=== PATIENT | male | born 1985 | race Caucasian/White ===

== ENCOUNTER → 2016-06-02 | Outpatient (CLI) | payer SELFPAY | LOC: M OUTALCOH 10:42 | PROVIDERS: ATTEND Psychiatry & Neurology Psychiatry | DX: Z03.89 Encounter for observation for other suspected diseases and conditions ruled out (principal) ==

== ENCOUNTER → 2016-06-29 | Outpatient (RCR) | payer SELFPAY | LOC: M OUTALCOH 06-21 11:36 | PROVIDERS: ATTEND Psychiatry & Neurology Psychiatry | DX: F10.20 Alcohol dependence, uncomplicated (principal) ==

== ENCOUNTER → 2016-07-30 | Outpatient (RCR) | payer SELFPAY | LOC: M OUTALCOH 07-06 11:05 | PROVIDERS: ATTEND Psychiatry & Neurology Psychiatry | DX: F10.20 Alcohol dependence, uncomplicated (principal) ==

== ENCOUNTER 2016-08-23 16:00 | Outpatient (RCR) | payer SELFPAY | END 2016-08-29 | LOC: M OUTALCOH 16:00 | PROVIDERS: ATTEND Psychiatry & Neurology Psychiatry | DX: F10.20 Alcohol dependence, uncomplicated (principal) ==

== ENCOUNTER 2016-09-08 08:41 | Emergency (ER) | payer SELFPAY ==
[~2016-09-08] VITALS: Ht 177.8 cm; Wt 95.3 kg
[2016-09-08 08:50] VITALS: BP 155/88
[2016-09-08] MEDS ORDERED: AUGM875T27 PO (09:59)
== END 2016-09-08 10:14 | disposition home or self-care (01) ==
LOC: M ED 09:47
DX: J01.00 Acute maxillary sinusitis, unspecified (principal); Z87.891 Personal history of nicotine dependence

== ENCOUNTER → 2016-09-09 | Outpatient (REF) | payer SELFPAY ==
[~2016-09-09] MED LIST: AUGM875T27 PO
[2016-09-12 08:06] LABS: URINE ETHANOL 1 Negative % (Cutoff=0.020)
== END ==
LOC: M OUTALCOH 16:04
PROVIDERS: ATTEND Psychiatry & Neurology Psychiatry
DX: F10.20 Alcohol dependence, uncomplicated (principal)

== ENCOUNTER 2016-09-23 15:00 | Outpatient (RCR) | payer SELFPAY | END 2016-09-29 | LOC: M OUTALCOH 15:00 | PROVIDERS: ATTEND Psychiatry & Neurology Psychiatry | DX: F10.20 Alcohol dependence, uncomplicated (principal) ==

== ENCOUNTER → 2016-10-07 | Outpatient (REF) | payer SELFPAY | LOC: M OUTALCOH 13:08 | PROVIDERS: ATTEND Psychiatry & Neurology Psychiatry | DX: F10.20 Alcohol dependence, uncomplicated (principal) ==

== ENCOUNTER 2016-10-28 16:00 | Outpatient (RCR) | payer SELFPAY | END 2016-10-29 | LOC: M OUTALCOH 16:00 | PROVIDERS: ATTEND Psychiatry & Neurology Psychiatry | DX: F10.20 Alcohol dependence, uncomplicated (principal) ==

== ENCOUNTER → 2016-10-28 | Outpatient (REF) | payer SELFPAY ==
[~2016-10-28] MED LIST changes: -AUGM875T27 PO; +AUGM875T28 PO
== END ==
LOC: M OUTALCOH 13:29
PROVIDERS: ATTEND Psychiatry & Neurology Psychiatry
DX: F10.20 Alcohol dependence, uncomplicated (principal)

== ENCOUNTER → 2016-11-15 | Outpatient (REF) | payer SELFPAY | LOC: M OUTALCOH 17:37 | PROVIDERS: ATTEND Psychiatry & Neurology Psychiatry | DX: F10.20 Alcohol dependence, uncomplicated (principal) ==

== ENCOUNTER 2016-11-19 08:00 | Outpatient (RCR) | payer SELFPAY | END 2016-11-29 | LOC: M OUTALCOH 08:00 | PROVIDERS: ATTEND Psychiatry & Neurology Psychiatry | DX: F10.20 Alcohol dependence, uncomplicated (principal) ==

== ENCOUNTER → 2016-11-19 | Outpatient (REF) | payer SELFPAY | LOC: M OUTALCOH 11:41 | PROVIDERS: ATTEND Psychiatry & Neurology Psychiatry | DX: F10.20 Alcohol dependence, uncomplicated (principal) ==

== ENCOUNTER → 2019-05-24 | Outpatient (REF) | payer BC | LOC: M SFHCLERA 09:24 | PROVIDERS: ATTEND Nurse Practitioner Family | DX: J02.9 Acute pharyngitis, unspecified (principal) ==